=== PATIENT | male | born 1975 | race Caucasian/White ===

== ENCOUNTER 2016-07-21 17:24 | Emergency (ER) | payer OTHER ==
[2016-07-21] MEDS: SODIUM CHLORIDE 0.9% 1000ML 1,000 ML IVS ONE ×2 (17:50→18:13)
[2016-07-21] MEDS: ONDANSETRON INJ 4 MG/2 ML VIAL IV ONE ×2 (17:51→18:12)
[2016-07-21] MEDS: KETOROLAC TROMETHAMINE INJ 30 MG/ML VIAL IV ONE (17:52)
[2016-07-21] MEDS: HYDROmorphone HCL INJ 2 MG/ML VIAL IV ONE (17:53)
--- NOTE | 2016-07-21 18:16 | ED.PDOC ---
History of Present Illness - General Source: patient, family Exam Limitations: no limitations Additional Information: PT REPORTS TO ED COMPLAINING OF LLQ ABDOMINAL PAIN THAT HE FEELS IS DUE TO A RENAL STONE HE WAS DIAGNOSED WITH APPROXIMATELY 1 WK AGO BY HIS UROLOGIST DR. TATE. PT REPORTS THAT PAIN HAS BEEN INTERMITTENT BUT BECAME SEVERE JUST PRIOR TO ARRIVAL. STONE WAS THOUGHT TO BE 3-5MM IN DIAMETER ACCORDING TO PATIENT. 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 - History of Present Illness Timing/Duration: just prior to arrival, week Quality: severe Onset Location: LLQ, left flank Radiation: scrotal Activites at Onset: none Prior abdominal problems: similar symptoms Improving Factors: nothing <Loyd Sevilla H - Last Filed: 07/21/16 18:14> <Flaca Luciano - Last Filed: 07/21/16 20:44> - General Chief Complaint: Problem Stated Complaint: kidney stone Time Seen by Provider: 07/21/16 18:05 - History of Present Illness Allergies/Adverse Reactions: Allergies Morphine Allergy (Unknown, Unverified 06/14/13 22:26) Home Medications: Ambulatory Orders Ibuprofen [Advil] 200 mg PO PRN 07/04/15 Melatonin 1 mg PO BEDTIME 07/04/15 Review of Systems - Review of Systems Constitutional: Denies: chills, fever EENTM: Denies: nose congestion, throat pain Respiratory: Denies: cough, short of breath Cardiology: Denies: chest pain, palpitations Gastrointestinal/Abdominal: States: see HPI, abdominal pain, nausea, vomiting. Denies: diarrhea Genitourinary: Denies: dysuria, hematuria Musculoskeletal: States: see HPI, back pain. Denies: joint pain Skin: Denies: change in color, lesions <WalkerShalomnie H - Last Filed: 07/21/16 18:14> Past Medical History (General) - Patient Medical History Hx Asthma: No Hx Cardiac Disorders: No Hx Congestive Heart Failure: No Hx Diabetes: No - Vaccination History Hx Tetanus, Diphtheria Vaccination: No Hx Influenza Vaccination: Yes Hx Pneumococcal Vaccination: No - Social History Hx Tobacco Use: No Hx Alcohol Use: No <Elise Sevillae H - Last Filed: 07/21/16 18:14> Family Medical History - Family History Mother Family History: No Known Living Status: Age at (years of age): 54 Hx Family;Other: alcohol <Loyd Sevilla - Last Filed: 07/21/16 18:14> Physical Exam - Physical Exam General Appearance: Alert, Obvious distress, Well Developed, Well Groomed Eyes, Ears, Nose, Throat Exam: normal ENT inspection Neck: normal inspection Cardiovascular/Respiratory: regular rate, rhythm, no M/R/G Gastrointestinal/Abdominal: non tender, soft Back Exam: normal inspection, no CVA tenderness Neurologic: normal mood/affect, oriented x 3 Skin Exam: normal color, warm/dry <Loyd Sevilla - Last Filed: 07/21/16 18:14> Progress - Results/Orders Results/Orders: Patient's pain was relieved with Torodol and Dilaudid. He has pain medication from Dr. Tate at home. He will call Dr. Tate in AM for any further problems. <Flaca Luciano Yaya - Last Filed: 07/21/16 20:44> Departure <Loyd Sevilla - Last Filed: 07/21/16 18:14> - Departure Time of Disposition: 20:43 Diet: resume usual diet <Flaca Luciano Yaya - Last Filed: 07/21/16 20:44> - Departure Clinical Impression: Ureteral calculus Disposition: Discharge to Home or Self Care Condition: Fair Departure Forms: ED Discharge - Pt. Copy, Patient Portal Self Enrollment Instructions: Kidney Stones -- Adult, DI for Kidney Stones Home Medications: Ambulatory Orders Ibuprofen [Advil] 200 mg PO PRN 07/04/15 Melatonin 1 mg PO BEDTIME 07/04/15 Additional Instructions: Call Dr. Tate in AM for any further problems.
[2016-07-21] MEDS: TAMSULOSIN 0.4 MG CAP PO ONE (18:28)
[2016-07-21] MEDS: SODIUM CHLORIDE 0.9% (FLUSH) 10 ML SYG IV PRN (18:28)
[2016-07-21 21:03] VITALS: BP 136/79; TEMP 97.9; O2SAT 100
== END 2016-07-21 21:00 | disposition home or self-care (01) ==
LOC: ER 17:24
DX: N20.1 Calculus of ureter (principal); Z87.442 Personal history of urinary calculi; Z88.6 Allergy status to analgesic agent
CPT/HCPCS: 80048; 81001; 85025; J1170; J1885; J2405; J7030

== ENCOUNTER → 2017-04-15 | Outpatient (CLI) | payer OTHER ==
--- NOTE | 2017-04-17 00:33 | RAD ---
Examination: XR KNEE 4 OR MORE VIEWS dated 04/15/2017 12:00 AM CDT History: KNEE PAIN Comparison: None Technique: Four views of the right knee FINDINGS AND IMPRESSION: No acute fracture or dislocation. Joint space is maintained. No significant degenerative changes. Probable small joint effusion. Electronically signed by: Van Brown MD 04/17/2017 12:31 AM CDT
--- NOTE | 2017-04-17 00:33 | RAD ---
Examination: XR PELVIS 1-2 VIEWS dated 04/15/2017 12:00 AM CDT History: HIP PAIN Comparison: None Technique: Frontal view of the pelvis FINDINGS AND IMPRESSION: Anatomic alignment of the hips. Intact pelvic ring. Symmetric SI joints. Normal contour and mineralization of the femoral head. Electronically signed by: Van Brown MD 04/17/2017 12:32 AM CDT
== END | disposition home or self-care (01) ==
LOC: RAD 07:58
PROVIDERS: ATTEND Orthopaedic Surgery
DX: M25.561 Pain in right knee (principal); M25.551 Pain in right hip; Z01.818 Encounter for other preprocedural examination

== ENCOUNTER 2017-04-27 05:49 | Day surgery (SDC) | payer OTHER ==
--- NOTE | 2017-04-25 17:27 | HP ---
CHIEF COMPLAINT: Right knee pain. HISTORY OF PRESENT ILLNESS: Harjit is a 42 year-old male with a history of right knee pain that has been going on for at least 1 year. Harjit has had no trauma related to the onset of this. He describes his pain as being predominant along the medial aspect but has occasional pain in the posterior region. This has been associated with intermittent swelling. He has had some clicking and popping that are painful. He denies any radiation of pain or any neurologic symptoms. He has had no recent trauma. He has had contralateral knee arthroscopy which did reveal a torn meniscus and chondral pathology. He has requested operative intervention for the right knee pain given the mechanical symptoms and the duration of pain. We have discussed the risks, benefits, and alternatives to that. He has given informed consent for that. PAST SURGICAL HISTORY: 1. Knee arthroscopy. CURRENT MEDICATIONS: None. ALLERGIES: NO KNOWN DRUG ALLERGIES. CODE STATUS: Full code. IMMUNIZATIONS: Up to date. FAMILY HISTORY: None pertinent to today's complaint. SOCIAL HISTORY: He does not drink, smoke or use any illicit drugs. REVIEW OF SYSTEMS: Negative except as indicated in the History of Present Illness. PHYSICAL EXAMINATION: VITAL SIGNS: Blood pressure 132/84, pulse 73, height 5' 11", weight 203. MENTAL STATUS: The patient is awake, alert, and is able to give a good history and participate in the physical. The patient is oriented to person, place and time. SKIN: Normal tone and turgor. MUSCULOSKELETAL: He is extremely tender along the medial aspect of the knee. He has some minor tenderness on the posteromedial aspect. He has a mild effusion. He has full extension with clicking and crepitus throughout the range of motion. Flexion is to about 125 to 130 degrees. There is no anterior , posterior, varus or valgus laxity. There is no obvious overall malalignment. X-RAYS: X-rays show no acute bony abnormality. ASSESSMENT: 1. Knee pain with mechanical symptoms. PLAN: At this point, Harjit has requested operative intervention. Given the associated mechanical symptoms, I think it is reasonable to proceed with that. We have discussed the risks, benefits, and alternatives to that and he has given informed consent for that. #[id number] [facility]
[2017-04-27] MEDS ORDERED: LACTATED RINGERS 1,000 ML ONE (06:11)
[2017-04-27] MEDS ORDERED: SODIUM CHL 0.9% 100ML MINI-BAG 100 ML IVPB ONE (06:11)
[2017-04-27] MEDS ORDERED: ceFAZolin SODIUM 1 GM VIAL ONE ×2 (06:12→06:31)
[2017-04-27] MEDS ORDERED: BUPIVACAINE 0.5% W/EPI 30 ML VIAL INJ ONE (06:31)
[2017-04-27] MEDS ORDERED: SODIUM CHLORIDE 0.9% 50 ML VIAL ONE (06:32)
[2017-04-27] MEDS ORDERED: HYDROmorphone HCL INJ 2 MG/ML VIAL ONE (06:34)
[2017-04-27] MEDS ORDERED: MIDAZOLAM INJ 2 MG/2 ML VIAL ONE (06:34)
[2017-04-27] MEDS: VANCOMYCIN HCL INJ 1,000 MG VIAL IVPB ONE ×2 (07:35→08:02)
[2017-04-27] MEDS: ceFAZolin SODIUM 1 GM VIAL ONE ×2 (07:35→08:02)
[2017-04-27 09:06] VITALS: O2SAT 97
[2017-04-27] MEDS ORDERED: HYDROcodone 5MG/APAP 325MG 1 EA TAB ONE (09:58)
[2017-04-27 10:27] VITALS: BP 118/68; TEMP 97.1
[2017-04-27] MEDS ORDERED: LIDOCAINE 1% 10 ML VIAL INJ ONE (12:00)
[2017-04-27] MEDS ORDERED: PROPOFOL 200 MG/20 ML VIAL IV ONE (12:00)
[2017-04-27] MEDS ORDERED: diphenhydrAMINE HCL 50 MG/ML VIAL IV ONE (12:00)
[2017-04-27] MEDS ORDERED: DEXAMETHASONE INJ 10 MG/ML VIAL IV ONE (12:00)
[2017-04-27] MEDS ORDERED: METOCLOPRAMIDE HCL INJ 10 MG/2 ML VIAL IV ONE (12:00)
[2017-04-27] MEDS ORDERED: raNITIdine HCL INJ 25 MG/ML VIAL IV ONE (12:00)
[2017-04-27] MEDS ORDERED: SODIUM CHLORIDE 0.9% 50 ML VIAL INJ ONE (12:00)
--- NOTE | 2017-05-02 08:47 | OP ---
DATE OF PROCEDURE: 04/27/17 PREOPERATIVE DIAGNOSIS: 1. Meniscus tear of the right knee. POSTOPERATIVE DIAGNOSIS: 1. Tear of the medial meniscus. 2. Tear of the lateral meniscus. PROCEDURE: 1. Partial meniscectomy on the medial aspect. 2. Partial meniscectomy on the lateral aspect. SURGEON: Raymon Serrano MD. LEGAL CASHIER: Harjit Palencia CST, SA-C. ANESTHESIA: General. COMPLICATIONS: None. FINDINGS: 1. Complex tear of the medial meniscus with a flap component. 2. Grade 1 to 2 changes in the tibial cartilage on the medial side. 3. Normal ACL and normal PCL. 4. Flap tear of the lateral meniscus to about the anterior one-third of the body. 5. Normal lateral gutter. 6. Normal suprapatellar pouch. 7. Softening of the patellofemoral cartilage. 8. Normal medial gutter. INDICATION: Harjit has a long history of pain in the knee which he has had going on for about a year. He has had some mechanical symptoms associated with that. He has had pain now that is causing him difficultly on a daily basis. Because of the ongoing pain, he has requested operative intervention. After discussing the risks, benefits and alternatives to operative intervention, the patient has given informed consent for arthroscopy. PROCEDURE: The patient was brought to the Operating Room and placed in supine position. General anesthesia was induced and the patient's leg was sterilely prepped and draped. Following prepping and draping, standard anteromedial and anterolateral portals were established. Diagnostic arthroscopy was carried out with the above findings. Following diagnostic arthroscopy, the medial meniscus was debrided with a 3.5 mm full radius shaver. The meniscus was probed to ensure no remaining flap components. Following that, the lateral meniscus was debrided and thoroughly probed. The base was found to be stable. The knee was very thoroughly irrigated and drained. Following draining of the knee, the wounds were closed with Nylon suture. Sterile dressings were placed. The patient was awoken from anesthesia and taken to Recovery. POSTOPERATIVE INSTRUCTIONS: The patient will be partial weightbearing until followup with us in two days. [facility][id number] [facility]
== END 2017-04-27 10:05 | disposition home or self-care (01) ==
LOC: AMB 05:49
PROVIDERS: ATTEND Orthopaedic Surgery
DX: M23.203 Derangement of unspecified medial meniscus due to old tear or injury, right knee (principal); M23.200 Derangement of unspecified lateral meniscus due to old tear or injury, right knee; K21.9 Gastro-esophageal reflux disease without esophagitis; Z88.5 Allergy status to narcotic agent; Z79.899 Other long term (current) drug therapy
CPT/HCPCS: 01400; 29880; 36415; 80048; 85025; 93005; A4216; J0690; J1100; J1170; J1200; J2250; J2765; J2780; J3370; J3490; J7050; J7120

== ENCOUNTER → 2018-06-14 | Outpatient (CLI) | payer OTHER | LOC: GMAL 11:40 | PROVIDERS: ATTEND Family Medicine | DX: Z00.01 Encounter for general adult medical examination with abnormal findings (principal); E29.1 Testicular hypofunction ==

== ENCOUNTER → 2019-10-04 | Outpatient (CLI) | payer OTHER | LOC: GMAL 11:42 | PROVIDERS: ATTEND Family Medicine | DX: Z00.01 Encounter for general adult medical examination with abnormal findings (principal) ==